=== PATIENT | male | born 2005 | race Caucasian/White ===

== ENCOUNTER 2023-03-23 08:02 | Emergency (ER) | payer OTHER, SELFPAY ==
[2023-03-23 08:11] VITALS: BP 137/84; PULSE 107; RESP 20; TEMP 37.3; O2SAT 100
--- NOTE | 2023-03-23 08:12 | ED.HA ---
HPI - Headache General Chief Complaint: Nausea/Vomiting/Diarrhea Stated Complaint: headache/nausea Time Seen by Provider: 03/23/23 08:12 Source: patient and RN notes reviewed History of Present Illness HPI Narrative: 18 yo M presents to urgent care with complaints of CASE and vomiting. Pt states he wasn't feeling well over the weekend but Tuesday, he developed a CASE and vomiting. Pt states he hasn't been able to keep anything down since. Pt did try to take ibuprofen with minimal relief. Pt denies any abdominal pain, chest pain, SOB, sore throat, ear pain, or diarrhea. Related Data Allergies Allergy/AdvReac Type Severity Reaction Status Date / Time No Known Allergies Allergy Verified 03/23/23 08:20 Review of Systems Review of Systems: CONSTITUTIONAL: Denies fever, chills, or sweats. EYES: Denies visual changes, redness, or discharge. ENT:sore throat last week CARDIOVASCULAR: Denies chest pain, palpitations, or edema. RESPIRATORY: Denies cough or dyspnea. GASTROINTESTINAL: nausea and vomiting GENITOURINARY: Denies dysuria or hematuria. SKIN: Denies rash or itching. MUSCULOSKELETAL: Denies back pain, joint pain, or myalgia. NEUROLOGIC: Headache Pertinent positives per HPI. [facility] Family History Family History (Updated 01/30/21 @ 14:58 by Marry Khalil [facility]) Father Skin cancer Grandparent Diabetes mellitus Hypertension Depression Anxiety Hyperlipidemia Social History Social History (Updated 01/30/21 @ 14:58 by Marry Khalil [facility]) Smoking status: Never smoker Alcohol intake: never Substance use: never Comments At the time of my signature, I reviewed and agree with the nursing past medical, surgical, social, and family history. There is no relevant family history pertinent to the patient complaint. Exam Narrative: GENERAL: This is a well-nourished, well-developed patient, appears he doesn't feel well HEAD: normocephalic, atraumatic. EYES: Sclera clear/white. Vision is grossly intact. EARS: External ears normal, auditory canals clear and without drainage, TMs normal without perforation. Hearing grossly intact. NOSE: External nose normal with no obvious nasal discharge, nares without redness, no rhinorrhea. THROAT: Mucous membranes moist, posterior pharynx clear. NECK: Neck supple, non-tender without lymphadenopathy, masses or thyromegaly. CARDIOVASCULAR: Regular rate and rhythm without murmurs, gallops, or rubs. RESPIRATORY: Clear to auscultation. Breath sounds equal bilaterally. No wheezes, rales, or rhonchi. GASTROINTESTINAL: Abdomen soft, non-tender, nondistended. Bowel sounds are active. No hepato-splenomegaly, or palpable masses. No guarding. SKIN: warm, intact with no suspicious lesions or rash, good texture and turgor. NEURO: awake, alert, and oriented to person, place and time. There were no obvious focal neurologic abnormalities. EXTREMITIES: No clubbing, cyanosis, or edema. No joint tenderness, effusion, or edema noted. BACK: Nontender without deformity or crepitus. No flank tenderness. Course Course Level of Care: Express Care Visit Vital Signs Vital signs: Vital Signs Temperature 99.2 F 03/23/23 08:11 Pulse Rate 107 H 03/23/23 08:11 Respiratory Rate 20 03/23/23 08:11 Blood Pressure 137/84 03/23/23 08:11 Pulse Oximetry 100 03/23/23 08:11 Oxygen Delivery Room Air 03/23/23 08:11 Temperature 99.2 F 03/23/23 08:11 Pulse Rate 107 H 03/23/23 08:11 Respiratory Rate 20 03/23/23 08:11 Blood Pressure 137/84 03/23/23 08:11 Pulse Oximetry 100 03/23/23 08:11 Oxygen Delivery Room Air 03/23/23 08:11 Reviewed MDM - Headache MDM Narrative Medical decision making narrative: You've been diagnosed with a viral illness that would not require antibiotics at this time. Take the Zofran ODT at home as directed for nausea and get plenty of fluids. If you would like to eat food, you should follow the BRAT diet (bananas, rice, applesauce, and toast
[2023-03-23] MEDS: KETOROLAC 30 MG/ML VIAL (*BKC) IM (08:32)
[2023-03-23] MEDS: ONDANSETRON HCL ODT 4 MG TABLET PO (08:32)
--- NOTE | 2023-03-23 09:15 | PC.NURSE ---
FLUID CHALLENGE GIVEN AND TOLERATED 500 ML WATER
== END 2023-03-23 09:20 | disposition home or self-care (01) ==
PROVIDERS: Emergency Provider Nurse Practitioner Family; PCP Family Medicine
DX: B34.9 Viral infection, unspecified (principal)
CPT/HCPCS: 96372; 99213; A9270; G0463; J1885

== ENCOUNTER 2025-02-06 11:15 | Outpatient (CLI) | payer OTHER, SELFPAY ==
[2025-02-06 19:47] LABS: Basophils Percent Auto 0.8 % (0.2-1.2); Eosinophils Absolute Auto 0.1 K/mm3 (0-0.3); Eosinophils Percent Auto 2.2 % (0-4.4); Hemoglobin 14.8 g/dL (14.0-18.0); Immature Granulocyte Absolute 0.01 K/mm3 (0.00-0.031); Immature Granulocyte Percent A 0.3 % (0-0.5); Lymphocytes Absolute Auto 1.18 K/mm3 (0.9-3.2); Lymphocytes Percent Auto 32.1 % (18.3-44.2); Mean Corpuscular HGB Conc 31.5 g/dl (32-36); Mean Corpuscular Hemoglobin 28.3 pg (26-34); Mean Corpuscular Volume 89.9 fl (80-100); Monocytes Absolute Auto 0.4 K/mm3 (0.1-0.6); Monocytes Percent Auto 11.4 % (2.6-8.5); Neutrophils Percent Auto 53.2 % (45.5-73.1); Platelet Count Result 247 k/mm3 (150-375); Red Blood Count 5.23 M/mm3 (4.6-6.20); Red Cell Distribution Width 12.9 % (11.5-14.5); White Blood Count 3.7 K/mm3 (4.5-10.0)
[2025-02-06 20:42] LABS: Hemoglobin A1C 5.1 % (<5.7)
[2025-02-06 21:36] LABS: Alanine Aminotransferase 14 U/L (6-50); Albumin Level 4.8 g/dL (3.5-5.1); Alkaline Phosphatase 61 U/L (38-126); Anion Gap 9 mmol/L (4-12); Aspartate Amino Transferase 72 U/L (17-59); Bilirubin,Total 0.9 mg/dL (0.2-1.3); Blood Urea Nitrogen 17 mg/dL (9-20); Calcium 9.9 mg/dL (8.4-10.2); Carbon Dioxide 26 mmol/L (22-30); Chloride 104 mmol/L (98-107); Cholesterol 164 mg/dL (0-200); Estimated Glomerular Filt Rate > 60; Glucose 84 mg/dL (65-110); HDL Direct 53 mg/dL; Potassium 5.1 mmol/L (3.4-5.0); Sodium 139 mmol/L (137-145); Total Protein 7.3 g/dL (6.3-8.2); Triglycerides 45 mg/dL (<150); Vitamin D 25 Hydroxy 27.4 ng/mL
[2025-02-06 21:48] LABS: LDL Cholesterol Direct 79 mg/dL
== END 2025-02-06 11:16 | disposition home or self-care (01) ==
LOC: ANHBWCLAB 11:16
PROVIDERS: PCP Family Medicine; Visit Provider Family Medicine
DX: Z00.00 Encounter for general adult medical examination without abnormal findings (principal); Z83.3 Family history of diabetes mellitus
CPT/HCPCS: 36415; 80053; 80061; 82306; 83036; 85025

== ENCOUNTER 2025-05-22 13:18 | Outpatient (CLI) | payer OTHER, SELFPAY ==
[2025-05-22 19:00] LABS: Alanine Aminotransferase 16 U/L (6-50); Albumin Level 4.8 g/dL (3.5-5.1); Alkaline Phosphatase 68 U/L (38-126); Anion Gap 9 mmol/L (4-12); Aspartate Amino Transferase 57 U/L (17-59); Bilirubin,Total 0.7 mg/dL (0.2-1.3); Blood Urea Nitrogen 19 mg/dL (9-20); Calcium 9.6 mg/dL (8.4-10.2); Carbon Dioxide 29 mmol/L (22-30); Chloride 101 mmol/L (98-107); Estimated Glomerular Filt Rate > 60; Glucose 80 mg/dL (65-110); Potassium 4.6 mmol/L (3.4-5.0); Sodium 139 mmol/L (137-145); Total Protein 7.6 g/dL (6.3-8.2)
[2025-05-22 19:31] LABS: Hematocrit 47.9 % (42.0-52.0); Hemoglobin 15.5 g/dL (14.0-18.0); Immature Granulocyte Percent A 0.2 % (0-0.5); Lymphocytes Absolute Auto 1.67 K/mm3 (0.9-3.2); Mean Corpuscular HGB Conc 32.4 g/dl (32-36); Mean Corpuscular Hemoglobin 28.8 pg (26-34); Mean Corpuscular Volume 89.0 fl (80-100); Nucleated Red Blood Cells Absolute Auto 0.000 K/mm3 (0.0-0.012); Nucleated Red Blood Cells Perc 0.0 % (0.0-0.2); Platelet Count Result 262 k/mm3 (150-375); Red Blood Count 5.38 M/mm3 (4.6-6.20); White Blood Count 5.9 K/mm3 (4.5-10.0)
[2025-05-22 19:52] LABS: Hepatitis B Surface Antigen Negative (Negative)
[2025-05-22 19:59] LABS: HAV RESULT Negative (Negative); Hepatitis B Core IgM Result Negative (Negative)
== END 2025-05-22 13:19 | disposition home or self-care (01) ==
LOC: ANHBWCLAB 13:19
PROVIDERS: PCP Family Medicine; Visit Provider Family Medicine
DX: E87.5 Hyperkalemia (principal); D72.819 Decreased white blood cell count, unspecified; R74.01 Elevation of levels of liver transaminase levels
CPT/HCPCS: 36415; 80053; 80074; 85025